=== PATIENT | male | born 1995 | race Hispanic/Latino ===

== ENCOUNTER → 2018-05-03 11:27 | Outpatient (CLI) | payer BC, SELFPAY ==
--- NOTE | 2018-05-03 11:40 | RAD_ITS ---
STUDY: X-RAY - RIGHT HAND REASON FOR EXAM: Male, 23 years old. Polyarthropathy TECHNIQUE: 2 view(s) of the hand. COMPARISON: None. FINDINGS: Normal radiocarpal articulation. Normal distal radioulnar joint. Normal visualized carpal bones. Normal carpal articulations Normal carpometacarpal articulation of the thumb. Normal second through fifth carpometacarpal joints. Normal metacarpi. Normal metacarpophalangeal joint of the thumb. Normal interphalangeal joint of the thumb. Normal proximal and distal phalanges of the thumb. Normal metacarpophalangeal joints of the second through fifth fingers. Normal proximal and distal interphalangeal joints of the second through fifth fingers. Normal phalanges of the second through fifth fingers. The soft tissue structures are unremarkable. RAD/Hand 2 Views IMPRESSION: Normal x-ray examination of the hand. Electronically Signed: Maximino Karimi, at 3:17 EDT Tel , Service support ,
--- NOTE | 2018-05-03 11:41 | RAD_ITS ---
STUDY: X-RAY - RIGHT FOOT CLINICAL: Male, 23 years old. Polyarthropathy TECHNIQUE: 2 view(s) of the foot. COMPARISON: None. FINDINGS: Normal talus, calcaneus, and tarsal bones. Normal visualized subtalar, talonavicular, calcaneocuboid, tarsal and tarsometatarsal articulations. Normal metatarsi. Normal metatarsophalangeal joint of the great toe. Normal tibial and fibular sesamoid bones. Normal interphalangeal joint of the great toe. Normal phalanges of the great toe. Normal second through fifth metatarsophalangeal joints. Normal interphalangeal joints and phalanges of the lesser toes. The soft tissue structures are unremarkable. RAD/Foot 2 Views IMPRESSION: Normal x-ray examination of the foot. Electronically Signed: Maximino Karimi, at 3:19 EDT Tel , Service support ,
--- NOTE | 2018-05-03 11:44 | RAD_ITS ---
STUDY: X-RAY - LEFT HAND REASON FOR EXAM: Male, 23 years old. Polyarthropathy TECHNIQUE: 2 view(s) of the hand. COMPARISON: None. FINDINGS: Normal radiocarpal articulation. Normal distal radioulnar joint. Normal visualized carpal bones. Normal carpal articulations Normal carpometacarpal articulation of the thumb. Normal second through fifth carpometacarpal joints. Normal metacarpi. Normal metacarpophalangeal joint of the thumb. Normal interphalangeal joint of the thumb. Normal proximal and distal phalanges of the thumb. Normal metacarpophalangeal joints of the second through fifth fingers. Normal proximal and distal interphalangeal joints of the second through fifth fingers. Normal phalanges of the second through fifth fingers. The soft tissue structures are unremarkable. RAD/Hand 2 Views IMPRESSION: Normal x-ray examination of the hand. Electronically Signed: Maximino Karimi, at 3:17 EDT Tel , Service support ,
--- NOTE | 2018-05-03 11:44 | RAD_ITS ---
STUDY: X-RAY - LEFT FOOT CLINICAL: Male, 23 years old. Polyarthropathy TECHNIQUE: 2 view(s) of the foot. COMPARISON: None. FINDINGS: Normal talus, calcaneus, and tarsal bones. Normal visualized subtalar, talonavicular, calcaneocuboid, tarsal and tarsometatarsal articulations. Normal metatarsi. Normal metatarsophalangeal joint of the great toe. Normal tibial and fibular sesamoid bones. Normal interphalangeal joint of the great toe. Normal phalanges of the great toe. Normal second through fifth metatarsophalangeal joints. Normal interphalangeal joints and phalanges of the lesser toes. The soft tissue structures are unremarkable. RAD/Foot 2 Views IMPRESSION: Normal x-ray examination of the foot. Electronically Signed: Maximino Karimi, at 3:18 EDT Tel , Service support ,
[2018-05-03 13:09] LABS: Eosinophil# 0.17 X10^3/uL
[2018-05-03 13:16] LABS: AST(SGOT) 19 U/L (15-37); Alanine Aminotransfer ALT/SGPT 48 U/L (16-61); Alkaline Phosphatase 69 U/L (45-117); Bilirubin, Direct 0.07 mg/dL (0.00-0.30); Creatinine, Serum 0.91 mg/dL (0.70-1.30); EST Glomerular Filtration Rate 111 mL/min (>60); Est Glom Filt Rate - Afr Amer 134 mL/min (>60); Globulin 5.2 g/dL (2.2-4.2); Protein, Total 8.2 g/dL (6.4-8.2); Rheumatoid Factor < 10.0 IU/mL (<15)
[2018-05-03 13:48] LABS: Hematocrit 41.6 % (40-54); Red Blood Count 5.22 M/mm3 (4.6-6.2)
[2018-05-03 13:49] LABS: Basophil% 0.2 % (0-1); Differential Indicated SCAN CRITERIA MET; Lymphocyte % 33.6 % (19-41); Mean Corp Hgb Conc 31.1 g/gl (32-36); Mean Corpuscular Hgb 24.9 pg (27.0-32.0); Mean Corpuscular Volume 79.7 fL (80-94); Mean Platelet Vol. 10.1 fl (6.2-12.0); Monocyte% 5.3 % (0-10); Neutrophil % 58.9 % (47-70); POSITIVE COUNT NO; POSITIVE DIFFERENTIAL YES; POSITIVE MORPHOLOGY NO; Platelet Count 435 K/mm3 (150-450); RBC Distribution Width SD 36.4 fl (35.1-43.9); White Blood Count 17.4 K/mm3 (4.4-11.0)
[2018-05-03 13:50] LABS: Absolute Lymphocyte Count 5.84 X10^3/ul (0.83-4.51); Absolute Neutrophil Count 10.3 X10^3/uL (2.0-7.7); Basophil# 0.04 X10^3/uL; Lymphocyte # 5.84 X10^3/ul (4.0); Monocyte# 0.93 X10^3/uL; Neutrophil # 10.24 X10^3/uL (2.7-7.7)
[2018-05-03 13:58] LABS: Erythrocyte Sedimentation Rate 70 mm/hr (0-15)
[2018-05-07 10:18] LABS: Anti-Nuclear Antibody Test Negative (.)
[2018-05-07 10:32] LABS: CCP IgG Antibodies 5 units (0-19)
== END ==
DX: M06.4 Inflammatory polyarthropathy (principal); Z79.899 Other long term (current) drug therapy
CPT/HCPCS: 36415; 73120; 73620; 80076; 82565; 85025; 85652; 86038; 86140; 86200; 86431

== ENCOUNTER → 2018-05-08 16:45 | Outpatient (CLI) | payer BC, SELFPAY ==
[2018-05-08 19:10] LABS: Erythrocyte Sedimentation Rate 56 mm/hr (0-15)
[2018-05-08 21:17] LABS: Absolute Lymphocyte Count 2.58 X10^3/ul (0.83-4.51); Absolute Neutrophil Count 10.6 X10^3/uL (2.0-7.7); Basophil# 0.03 X10^3/uL; Basophil% 0.2 % (0-1); Eosinophil# 0.08 X10^3/uL; Eosinophils% 0.6 % (0-5); Hematocrit 42.8 % (40-54); Hemoglobin 13.3 g/dl (13.0-16.5); Lymphocyte # 2.58 X10^3/ul (4.0); Mean Corp Hgb Conc 31.1 g/gl (32-36); Mean Corpuscular Volume 80.6 fL (80-94); Mean Platelet Vol. 10.9 fl (6.2-12.0); Monocyte# 0.94 X10^3/uL; Monocyte% 6.5 % (0-10); Neutrophil # 10.64 X10^3/uL (2.7-7.7); Neutrophil % 74.1 % (47-70); Platelet Count 385 K/mm3 (150-450); RBC Distribution Width CV 14.6 % (11.6-14.6); RBC Distribution Width SD 40.7 fl (35.1-43.9); Red Blood Count 5.31 M/mm3 (4.6-6.2); White Blood Count 14.4 K/mm3 (4.4-11.0)
[2018-05-08 21:18] LABS: POSITIVE COUNT NO; POSITIVE DIFFERENTIAL NO; POSITIVE MORPHOLOGY NO
== END ==
DX: R70.0 Elevated erythrocyte sedimentation rate (principal); R79.82 Elevated C-reactive protein (CRP); D72.829 Elevated white blood cell count, unspecified
CPT/HCPCS: 36415; 85025; 85652; 86140

== ENCOUNTER → 2018-06-04 15:42 | Outpatient (CLI) | payer BC, SELFPAY ==
[2018-06-04 16:50] LABS: Erythrocyte Sedimentation Rate 43 mm/hr (0-15)
== END ==
DX: R70.0 Elevated erythrocyte sedimentation rate (principal); R79.82 Elevated C-reactive protein (CRP)
CPT/HCPCS: 85652; 86140

== ENCOUNTER → 2018-06-15 08:52 | Outpatient (CLI) | payer BC, SELFPAY | DX: M25.552 Pain in left hip (principal); M06.00 Rheumatoid arthritis without rheumatoid factor, unspecified site; M06.4 Inflammatory polyarthropathy | CPT/HCPCS: 20610; 77002; Q9967 ==

== ENCOUNTER → 2018-06-26 14:37 | Outpatient (CLI) | payer BC, SELFPAY ==
[2018-06-26 17:04] LABS: Erythrocyte Sedimentation Rate 47 mm/hr (0-15)
== END ==
DX: M06.00 Rheumatoid arthritis without rheumatoid factor, unspecified site (principal); R70.0 Elevated erythrocyte sedimentation rate; R79.82 Elevated C-reactive protein (CRP)
CPT/HCPCS: 36415; 85652; 86140

== ENCOUNTER → 2018-08-02 11:50 | Outpatient (CLI) | payer BC, SELFPAY ==
[2018-08-02 12:55] LABS: Erythrocyte Sedimentation Rate 56 mm/hr (0-15)
[2018-08-02 12:58] LABS: Absolute Lymphocyte Count 2.24 X10^3/ul (0.83-4.51); Absolute Neutrophil Count 4.1 X10^3/uL (2.0-7.7); Basophil# 0.02 X10^3/uL; Basophil% 0.3 % (0-1); Eosinophil# 0.13 X10^3/uL; Eosinophils% 1.8 % (0-5); Hematocrit 42.7 % (40-54); Hemoglobin 13.6 g/dl (13.0-16.5); Lymphocyte # 2.24 X10^3/ul (4.0); Lymphocyte % 31.2 % (19-41); Mean Corp Hgb Conc 31.9 g/gl (32-36); Mean Corpuscular Hgb 25.1 pg (27.0-32.0); Mean Corpuscular Volume 78.9 fL (80-94); Mean Platelet Vol. 10.1 fl (6.2-12.0); Monocyte# 0.69 X10^3/uL; Monocyte% 9.6 % (0-10); Platelet Count 422 K/mm3 (150-450); RBC Distribution Width CV 12.8 % (11.6-14.6); RBC Distribution Width SD 36.6 fl (35.1-43.9); Red Blood Count 5.41 M/mm3 (4.6-6.2); White Blood Count 7.2 K/mm3 (4.4-11.0)
[2018-08-02 13:01] LABS: POSITIVE COUNT NO; POSITIVE DIFFERENTIAL NO; POSITIVE MORPHOLOGY NO
[2018-08-02 13:22] LABS: AST(SGOT) 9 U/L (15-37); Alanine Aminotransfer ALT/SGPT 18 U/L (16-61); Alkaline Phosphatase 53 U/L (45-117); Bilirubin, Direct 0.21 mg/dL (0.00-0.30); Creatinine, Serum 0.89 mg/dL (0.70-1.30); EST Glomerular Filtration Rate 113 mL/min (>60); Est Glom Filt Rate - Afr Amer 137 mL/min (>60); Globulin 5.4 g/dL (2.2-4.2); Protein, Total 8.4 g/dL (6.4-8.2); Rheumatoid Factor < 10.0 IU/mL (<15)
[2018-08-02 14:08] LABS: HIV - WCH Non-Reactive (Nonreactive)
[2018-08-10 13:10] LABS: HEPATITIS B SURFACE AG Negative (Negative); Hepatitis B Core AB IgM Negative (Negative); Hepatitis B Core Ab Total Negative (Negative); Hepatitis Be Ab Negative (Negative); Hepatitis Be Ag Negative (Negative); QNTFERON TB Ag Minus Nil Value 0.26 IU/mL (.); QNTFERON TB Mitogen Value > 10.00 IU/mL (.); QNTFERON TB Nil Value 0.04 IU/mL (.)
[2018-08-10 13:33] LABS: CCP IgG Antibodies 5 units (0-19); Hep C Antibodies <0.1 s/co ratio (0.0-0.9); QNTIFERON TB Gold Negative (Negative)
== END ==
DX: M06.00 Rheumatoid arthritis without rheumatoid factor, unspecified site (principal); Z79.899 Other long term (current) drug therapy
CPT/HCPCS: 36415; 80076; 82565; 85025; 85652; 86140; 86200; 86431; 86480; 86703; 86705; 86707; 86803; 87340; 87350

== ENCOUNTER → 2018-08-13 08:57 | Outpatient (CLI) | payer BC, SELFPAY ==
--- NOTE | 2018-08-13 09:03 | NM_ITS ---
CLINICAL: 23-year-old male with reported history of known rheumatoid arthritis, current complaint of diffuse arthralgia and left hip pain. WHOLE BODY 99m Tc MDP RADIONUCLIDE BONE SCINTIGRAPHY COMPARISON: None available FINDINGS: Following the intravenous administration of 25.0 mCi of 99m Tc MDP, whole body bone images reveal: 1. Increased radiopharmaceutical concentration is identified in the left hip articulation at the acetabular-femoral head interface, the glenohumeral and sternoclavicular compartments of both shoulders, bilateral mid and forefoot, right and left wrist articulations, both knees. 2. The remaining skeletal structures are scintigraphically unremarkable with normal-appearing renal images and urinary bladder activity identified. Enhanced uptake appears evident in the right mid humeral diaphysis likely representing superimposed tracer concentration in the right upper extremity lymphatic channels associated with the visualized right antecubital fossa dose infiltration. NM/Bone Scan Whole Body IMPRESSION: 1. The increase in radiopharmaceutical concentration identified in the left hip, bilateral shoulders, midfoot and forefoot bilaterally, right-left wrists, knee articulations bilaterally is most consistent with synovial inflammation attributed to the patient's known history of rheumatoid arthritis. Electronically Signed: Angel Luis Sousa DO at 23:57 EDT Tel , Service support ,
== END ==
DX: M06.00 Rheumatoid arthritis without rheumatoid factor, unspecified site (principal); R79.82 Elevated C-reactive protein (CRP); R70.0 Elevated erythrocyte sedimentation rate
CPT/HCPCS: 78306

== ENCOUNTER → 2018-08-31 13:16 | Outpatient (CLI) | payer BC, SELFPAY ==
[2018-08-31 13:38] LABS: Erythrocyte Sedimentation Rate 11 mm/hr (0-15)
[2018-08-31 13:43] LABS: Absolute Lymphocyte Count 4.35 X10^3/ul (0.83-4.51); Absolute Neutrophil Count 5.3 X10^3/uL (2.0-7.7); Basophil# 0.03 X10^3/uL; Basophil% 0.3 % (0-1); Eosinophil# 0.15 X10^3/uL; Eosinophils% 1.4 % (0-5); Hematocrit 47.4 % (40-54); Hemoglobin 14.8 g/dl (13.0-16.5); Lymphocyte # 4.35 X10^3/ul (4.0); Lymphocyte % 40.7 % (19-41); Mean Corp Hgb Conc 31.2 g/gl (32-36); Mean Corpuscular Hgb 25.4 pg (27.0-32.0); Mean Corpuscular Volume 81.4 fL (80-94); Mean Platelet Vol. 10.3 fl (6.2-12.0); Monocyte# 0.82 X10^3/uL; Monocyte% 7.7 % (0-10); Neutrophil # 5.32 X10^3/uL (2.7-7.7); Neutrophil % 49.8 % (47-70); Platelet Count 260 K/mm3 (150-450); RBC Distribution Width CV 14.7 % (11.6-14.6); RBC Distribution Width SD 42.4 fl (35.1-43.9); Red Blood Count 5.82 M/mm3 (4.6-6.2); White Blood Count 10.7 K/mm3 (4.4-11.0)
[2018-08-31 13:44] LABS: POSITIVE COUNT NO; POSITIVE DIFFERENTIAL NO; POSITIVE MORPHOLOGY NO
[2018-08-31 13:59] LABS: AST(SGOT) 11 U/L (15-37); Alanine Aminotransfer ALT/SGPT 32 U/L (16-61); Albumin, Serum 3.6 g/dL (3.2-5.0); Alkaline Phosphatase 64 U/L (45-117); Bilirubin, Direct 0.17 mg/dL (0.00-0.30); Creatinine, Serum 0.93 mg/dL (0.70-1.30); EST Glomerular Filtration Rate 107 mL/min (>60); Est Glom Filt Rate - Afr Amer 130 mL/min (>60); Globulin 4.5 g/dL (2.2-4.2); Protein, Total 8.1 g/dL (6.4-8.2)
== END ==
DX: M06.00 Rheumatoid arthritis without rheumatoid factor, unspecified site (principal); R70.0 Elevated erythrocyte sedimentation rate; Z79.899 Other long term (current) drug therapy
CPT/HCPCS: 36415; 80076; 82565; 85025; 85652; 86140

== ENCOUNTER → 2018-10-19 12:05 | Outpatient (CLI) | payer BC, SELFPAY ==
[2018-10-19 13:11] LABS: Absolute Lymphocyte Count 2.99 X10^3/ul (0.83-4.51); Absolute Neutrophil Count 5.7 X10^3/uL (2.0-7.7); Basophil# 0.03 X10^3/uL; Basophil% 0.3 % (0-1); Eosinophil# 0.16 X10^3/uL; Eosinophils% 1.6 % (0-5); Hematocrit 40.5 % (40-54); Hemoglobin 12.7 g/dl (13.0-16.5); Lymphocyte # 2.99 X10^3/ul (4.0); Lymphocyte % 30.3 % (19-41); Mean Corp Hgb Conc 31.4 g/gl (32-36); Mean Corpuscular Hgb 25.5 pg (27.0-32.0); Mean Corpuscular Volume 81.3 fL (80-94); Mean Platelet Vol. 9.7 fl (6.2-12.0); Monocyte# 0.94 X10^3/uL; Monocyte% 9.5 % (0-10); Neutrophil # 5.72 X10^3/uL (2.7-7.7); Neutrophil % 58.1 % (47-70); POSITIVE COUNT NO; POSITIVE DIFFERENTIAL NO; POSITIVE MORPHOLOGY NO; Platelet Count 345 K/mm3 (150-450); RBC Distribution Width CV 15.2 % (11.6-14.6); RBC Distribution Width SD 44.9 fl (35.1-43.9); Red Blood Count 4.98 M/mm3 (4.6-6.2); White Blood Count 9.9 K/mm3 (4.4-11.0)
[2018-10-19 13:16] LABS: Erythrocyte Sedimentation Rate 66 mm/hr (0-15)
[2018-10-19 13:38] LABS: AST(SGOT) 8 U/L (15-37); Alanine Aminotransfer ALT/SGPT 19 U/L (16-61); Alkaline Phosphatase 49 U/L (45-117); Bilirubin, Direct 0.23 mg/dL (0.00-0.30); Creatinine, Serum 0.82 mg/dL (0.70-1.30); EST Glomerular Filtration Rate 125 mL/min (>60); Est Glom Filt Rate - Afr Amer 151 mL/min (>60); Globulin 4.6 g/dL (2.2-4.2); Protein, Total 7.6 g/dL (6.4-8.2)
== END ==
DX: M06.00 Rheumatoid arthritis without rheumatoid factor, unspecified site (principal); R70.0 Elevated erythrocyte sedimentation rate; Z79.899 Other long term (current) drug therapy
CPT/HCPCS: 36415; 80076; 82565; 85025; 85652; 86140

== ENCOUNTER → 2018-11-26 16:35 | Outpatient (CLI) | payer BC, SELFPAY ==
[2018-11-26 17:33] LABS: Absolute Lymphocyte Count 1.74 X10^3/ul (0.83-4.51); Basophil# 0.04 X10^3/uL; Basophil% 0.5 % (0-1); Eosinophils% 2.3 % (0-5); Erythrocyte Sedimentation Rate 40 mm/hr (0-15); Hemoglobin 12.3 g/dl (13.0-16.5); Lymphocyte # 1.74 X10^3/ul (4.0); Lymphocyte % 19.7 % (19-41); Mean Corp Hgb Conc 31.5 g/gl (32-36); Mean Corpuscular Hgb 25.9 pg (27.0-32.0); Mean Corpuscular Volume 82.3 fL (80-94); Mean Platelet Vol. 10.4 fl (6.2-12.0); Monocyte# 0.87 X10^3/uL; Monocyte% 9.9 % (0-10); Neutrophil # 5.96 X10^3/uL (2.7-7.7); Neutrophil % 67.5 % (47-70); Platelet Count 352 K/mm3 (150-450); RBC Distribution Width CV 13.8 % (11.6-14.6); RBC Distribution Width SD 40.4 fl (35.1-43.9); Red Blood Count 4.74 M/mm3 (4.6-6.2); White Blood Count 8.8 K/mm3 (4.4-11.0)
[2018-11-26 17:42] LABS: AST(SGOT) 10 U/L (15-37); Alanine Aminotransfer ALT/SGPT 20 U/L (16-61); Albumin, Serum 3.1 g/dL (3.2-5.0); Alkaline Phosphatase 60 U/L (45-117); Bilirubin, Direct 0.32 mg/dL (0.00-0.30); Creatinine, Serum 0.81 mg/dL (0.70-1.30); EST Glomerular Filtration Rate 125 mL/min (>60); Est Glom Filt Rate - Afr Amer 151 mL/min (>60); Globulin 4.5 g/dL (2.2-4.2); Protein, Total 7.6 g/dL (6.4-8.2)
[2018-11-26 18:03] LABS: POSITIVE COUNT NO; POSITIVE DIFFERENTIAL NO; POSITIVE MORPHOLOGY NO
== END ==
DX: M06.00 Rheumatoid arthritis without rheumatoid factor, unspecified site (principal); Z79.899 Other long term (current) drug therapy
CPT/HCPCS: 36415; 80076; 82565; 85025; 85652; 86140

== ENCOUNTER → 2019-02-04 12:20 | Outpatient (CLI) | payer BC, SELFPAY ==
[2019-02-04 13:24] LABS: Absolute Lymphocyte Count 2.63 X10^3/ul (0.83-4.51); Absolute Neutrophil Count 8.4 X10^3/uL (2.0-7.7); Basophil# 0.02 X10^3/uL; Basophil% 0.2 % (0-1); Eosinophil# 0.31 X10^3/uL; Eosinophils% 2.6 % (0-5); Hematocrit 33.6 % (40-54); Hemoglobin 10.4 g/dl (13.0-16.5); Lymphocyte # 2.63 X10^3/ul (4.0); Lymphocyte % 22.2 % (19-41); Mean Corpuscular Hgb 24.5 pg (27.0-32.0); Mean Corpuscular Volume 79.1 fL (80-94); Mean Platelet Vol. 9.9 fl (6.2-12.0); Monocyte# 0.42 X10^3/uL; Monocyte% 3.6 % (0-10); Neutrophil # 8.43 X10^3/uL (2.7-7.7); Neutrophil % 71.2 % (47-70); Platelet Count 354 K/mm3 (150-450); RBC Distribution Width CV 15.6 % (11.6-14.6); RBC Distribution Width SD 45.1 fl (35.1-43.9); Red Blood Count 4.25 M/mm3 (4.6-6.2); White Blood Count 11.8 K/mm3 (4.4-11.0)
[2019-02-04 13:37] LABS: Erythrocyte Sedimentation Rate 59 mm/hr (0-15)
[2019-02-04 13:39] LABS: POSITIVE COUNT NO; POSITIVE DIFFERENTIAL NO; POSITIVE MORPHOLOGY NO
[2019-02-04 13:43] LABS: AST(SGOT) 13 U/L (15-37); Alanine Aminotransfer ALT/SGPT 23 U/L (16-61); Albumin, Serum 2.8 g/dL (3.2-5.0); Alkaline Phosphatase 75 U/L (45-117); Bilirubin, Direct 0.17 mg/dL (0.00-0.30); Creatinine, Serum 0.82 mg/dL (0.70-1.30); EST Glomerular Filtration Rate 123 mL/min (>60); Est Glom Filt Rate - Afr Amer 149 mL/min (>60); Globulin 4.6 g/dL (2.2-4.2); Protein, Total 7.4 g/dL (6.4-8.2)
== END ==
PROVIDERS: Referring Provider Internal Medicine Rheumatology; Visit Provider Internal Medicine Rheumatology
DX: M06.00 Rheumatoid arthritis without rheumatoid factor, unspecified site (principal); Z79.899 Other long term (current) drug therapy
CPT/HCPCS: 36415; 80076; 82565; 85025; 85652; 86140

== ENCOUNTER → 2019-02-25 13:00 | Outpatient (CLI) | payer BC, SELFPAY ==
--- NOTE | 2019-02-25 13:06 | RAD_ITS ---
STUDY: X-RAY CHEST REASON FOR EXAM: Male, 23 years old. Rheumatoid arthritis. TECHNIQUE: Frontal and lateral views of the chest COMPARISON: None. FINDINGS: The lungs are clear. There are no pleural effusions. There is no pneumothorax. The heart is normal in size. The visualized osseous structures are within normal limits. RAD/Chest PA and Lateral IMPRESSION: Clear lungs. Electronically Signed: Sandro Gee, at 19:32 EDT Tel , Service support ,
== END ==
PROVIDERS: Referring Provider Internal Medicine Rheumatology; Visit Provider Internal Medicine Rheumatology
DX: M06.00 Rheumatoid arthritis without rheumatoid factor, unspecified site (principal)
CPT/HCPCS: 71046

== ENCOUNTER → 2019-03-01 15:37 | Outpatient (CLI) | payer BC, SELFPAY ==
[2019-03-01 16:21] LABS: Erythrocyte Sedimentation Rate 38 mm/hr (0-15)
== END ==
PROVIDERS: Referring Provider Internal Medicine Rheumatology; Visit Provider Internal Medicine Rheumatology
DX: R70.0 Elevated erythrocyte sedimentation rate (principal); R79.82 Elevated C-reactive protein (CRP)
CPT/HCPCS: 36415; 85652; 86140

== ENCOUNTER → 2019-04-08 12:35 | Outpatient (CLI) | payer BC, SELFPAY ==
[2019-04-08 13:31] LABS: Absolute Lymphocyte Count 3.54 X10^3/ul (0.83-4.51); Basophil# 0.01 X10^3/uL; Basophil% 0.1 % (0-1); Eosinophil# 0.07 X10^3/uL; Eosinophils% 0.7 % (0-5); Hematocrit 40.6 % (40-54); Hemoglobin 13.4 g/dl (13.0-16.5); Lymphocyte # 3.54 X10^3/ul (4.0); Lymphocyte % 33.9 % (19-41); Mean Corpuscular Hgb 27.4 pg (27.0-32.0); Mean Platelet Vol. 11.3 fl (6.2-12.0); Monocyte# 0.74 X10^3/uL; Monocyte% 7.1 % (0-10); Neutrophil # 6.04 X10^3/uL (2.7-7.7); Neutrophil % 57.9 % (47-70); Platelet Count 242 K/mm3 (150-450); RBC Distribution Width CV 17.5 % (11.6-14.6); RBC Distribution Width SD 53.2 fl (35.1-43.9); Red Blood Count 4.89 M/mm3 (4.6-6.2); White Blood Count 10.4 K/mm3 (4.4-11.0)
[2019-04-08 13:32] LABS: POSITIVE COUNT NO; POSITIVE DIFFERENTIAL NO; POSITIVE MORPHOLOGY NO
[2019-04-08 13:56] LABS: AST(SGOT) 6 U/L (15-37); Alanine Aminotransfer ALT/SGPT 17 U/L (16-61); Albumin, Serum 3.6 g/dL (3.2-5.0); Alkaline Phosphatase 80 U/L (45-117); Bilirubin, Direct 0.24 mg/dL (0.00-0.30); Creatinine, Serum 0.98 mg/dL (0.70-1.30); EST Glomerular Filtration Rate 101 mL/min (>60); Est Glom Filt Rate - Afr Amer 123 mL/min (>60); Globulin 3.5 g/dL (2.2-4.2); Protein, Total 7.1 g/dL (6.4-8.2)
== END ==
PROVIDERS: Referring Provider Internal Medicine Rheumatology; Visit Provider Internal Medicine Rheumatology
DX: Z79.899 Other long term (current) drug therapy (principal)
CPT/HCPCS: 36415; 80076; 82565; 85025

== ENCOUNTER → 2019-05-06 13:13 | Outpatient (CLI) | payer BC, SELFPAY ==
[2019-05-06 14:55] LABS: Erythrocyte Sedimentation Rate 38 mm/hr (0-15)
== END ==
PROVIDERS: Referring Provider Internal Medicine Rheumatology; Visit Provider Internal Medicine Rheumatology
DX: R70.0 Elevated erythrocyte sedimentation rate (principal); R79.82 Elevated C-reactive protein (CRP); M06.00 Rheumatoid arthritis without rheumatoid factor, unspecified site
CPT/HCPCS: 36415; 85652; 86140

== ENCOUNTER 2019-06-03 11:50 | Outpatient (RCR) | payer BC, SELFPAY ==
[2019-06-03 13:39] LABS: Erythrocyte Sedimentation Rate 75 mm/hr (0-15)
== END 2019-06-03 13:00 | disposition home or self-care (01) ==
LOC: LAB 11:50
PROVIDERS: Referring Provider Internal Medicine Rheumatology; Visit Provider Internal Medicine Rheumatology
DX: R70.0 Elevated erythrocyte sedimentation rate (principal); R79.82 Elevated C-reactive protein (CRP); M06.00 Rheumatoid arthritis without rheumatoid factor, unspecified site
CPT/HCPCS: 36415; 85652; 86140

== ENCOUNTER → 2019-06-21 08:46 | Outpatient (CLI) | payer BC, SELFPAY ==
--- NOTE | 2019-06-21 08:49 | NM_ITS ---
CLINICAL: 24-year-old male with reported history of rheumatoid arthritis with current complaint of increasing left hip pain. WHOLE BODY 99m Tc MDP RADIONUCLIDE BONE SCINTIGRAPHY COMPARISON: Previous whole body bone scintigraphy study dated 08/13/2018 FINDINGS: Following the intravenous administration of 26.0 mCi of 99m Tc MDP, whole body bone images reveal: 1. Increased radiopharmaceutical concentration is currently identified in the acromioclavicular, sternoclavicular and glenohumeral compartments of both shoulders, bilateral knee articulations, right-left midfoot, wrist and elbow articulations bilaterally the right hip and intensely defined in the left hip. 2. The remaining skeletal structures are scintigraphically unremarkable with normal-appearing renal images and urinary bladder activity identified. NM/Bone Scan Whole Body IMPRESSION: 1. The increase in radiopharmaceutical concentration both redefined and newly apparent in the above described joints is commensurate with synovial inflammation intruded to the patient's rheumatoid arthritis. 2. Overall compared to the previous whole body bone scintigraphy study dated 08/13/2018, there is both redemonstrated and newly apparent foci of increased tracer uptake with the degree of facilitated tracer concentration significantly increased in the left hip relative to the previous examination. Electronically Signed: Angel Luis Sousa DO at 7:53 EDT Tel , Service support ,
== END ==
PROVIDERS: Referring Provider Internal Medicine Rheumatology; Visit Provider Internal Medicine Rheumatology
DX: M06.00 Rheumatoid arthritis without rheumatoid factor, unspecified site (principal)
CPT/HCPCS: 78306

== ENCOUNTER → 2019-07-08 08:49 | Outpatient (CLI) | payer BC, SELFPAY ==
--- NOTE | 2019-07-08 08:51 | RAD_ITS ---
PROCEDURE: Fluoroscopic guided Hip Injection DATE: July 08, 2019. INDICATION: Male, 24 years old. History of rheumatoid arthritis. Left hip pain. PHYSICIAN: Rafy Lockett M.D. MEDICATIONS: 40 mg of Kenalog. 2% lidocaine administered subcutaneously for local anesthesia. ACCESS SITE: Left hip. NEEDLE: 22-gauge spinal needle. FLUOROSCOPY TIME (if supplied): (0:30) minutes/seconds FINDINGS: The risks, benefits, and alternatives to the procedure were explained to the patient. The specific risks of bleeding, infection, and neurovascular injury were detailed and accepted. Witnessed informed consent was obtained. A 22-gauge spinal needle was positioned under radiographic fluoroscopic localization. Approximately 2 cc of Isovue-300 instilled for localization purposes. Medication was then injected. The patient tolerated the procedure well without any immediate complications. RAD/Inj/Asp Benjamin Jt Should/Hip/Knee IMPRESSION: 1. Successful fluoroscopic guided hip injection. Electronically Signed: Rafy Lockett, at 10:22 EDT , Service support ,
== END ==
PROVIDERS: Referring Provider Internal Medicine Rheumatology; Visit Provider Internal Medicine Rheumatology
DX: M25.552 Pain in left hip (principal); M06.00 Rheumatoid arthritis without rheumatoid factor, unspecified site; M06.4 Inflammatory polyarthropathy
CPT/HCPCS: 20610; 77002; Q9965

== ENCOUNTER → 2019-07-10 15:09 | Outpatient (CLI) | payer BC, SELFPAY ==
[2019-07-10 16:21] LABS: Absolute Lymphocyte Count 2.71 X10^3/uL (0.83-4.51); Absolute Neutrophil Count 7.4 X10^3/uL (2.0-7.7); Basophil# 0.03 X10^3/uL; Basophil% 0.3 % (0-1); Eosinophil# 0.03 X10^3/uL; Eosinophils% 0.3 % (0-5); Hematocrit 36.6 % (40-54); Hemoglobin 11.2 g/dL (13.0-16.5); Lymphocyte # 2.71 X10^3/ul (4.0); Lymphocyte % 25.1 % (19-41); Mean Corp Hgb Conc 30.6 g/dL (32-36); Mean Corpuscular Volume 85.1 fL (80-94); Mean Platelet Vol. 9.9 fl (6.2-12.0); Monocyte# 0.59 X10^3/uL; Monocyte% 5.5 % (0-10); NRBC Flagged by Analyzer 0 % (0-5); Neutrophil # 7.37 X10^3/uL (2.7-7.7); Neutrophil % 68.2 % (47-70); Platelet Count 437 K/mm3 (150-450); RBC Distribution Width CV 13.3 % (11.6-14.6); RBC Distribution Width SD 40.3 fl (35.1-43.9); White Blood Count 10.8 K/mm3 (4.4-11.0)
[2019-07-10 16:45] LABS: Erythrocyte Sedimentation Rate 80 mm/hr (0-15)
[2019-07-10 17:10] LABS: AST(SGOT) 10 U/L (15-37); Alanine Aminotransfer ALT/SGPT 22 U/L (16-61); Albumin, Serum 2.8 g/dL (3.2-5.0); Alkaline Phosphatase 74 U/L (45-117); Bilirubin, Direct 0.09 mg/dL (0.00-0.30); Creatinine, Serum 0.85 mg/dL (0.70-1.30); EST Glomerular Filtration Rate 118 mL/min (>60); Est Glom Filt Rate - Afr Amer 143 mL/min (>60); Globulin 4.9 g/dL (2.2-4.2); Protein, Total 7.7 g/dL (6.4-8.2); Rheumatoid Factor < 10.0 IU/mL (<15)
[2019-07-11 12:57] LABS: Hepatitis B Surface Antibody Non-Reactive; Hepatitis B Surface Antigen Non-Reactive (Nonreactive); Hepatitis C Antibody Non-Reactive (Nonreactive)
[2019-07-13 03:06] LABS: QNTFERON TB Mitogen Value > 10.00 IU/mL (.); QNTFERON TB Nil Value 0.03 IU/mL (.); QNTFERON TB1+ Ag Value 0.03 IU/mL (.); QNTFERON TB2+ Ag Value 0.02 IU/mL (.)
[2019-07-15 10:14] LABS: CCP IgG Antibodies 4 units (0-19); Hepatitis B Core Ab Total Negative (Negative); QNTIFERON TB Positive Criteria Negative (Negative)
== END ==
PROVIDERS: Family Provider Internal Medicine Rheumatology; PCP Internal Medicine Rheumatology; Referring Provider Internal Medicine Rheumatology; Visit Provider Internal Medicine Rheumatology
DX: M06.00 Rheumatoid arthritis without rheumatoid factor, unspecified site (principal); Z79.899 Other long term (current) drug therapy
CPT/HCPCS: 36415; 80076; 82565; 85025; 85652; 86140; 86200; 86431; 86480; 86704; 86706; 86803; 87340

== ENCOUNTER → 2019-07-29 15:00 | Outpatient (CLI) | payer BC, SELFPAY ==
--- NOTE | 2019-07-29 15:05 | MRI_ITS ---
STUDY: MRI LEFT HIP REASON FOR EXAM: Male, 24 years old. Rheumatoid arthritis. Left hip pain. TECHNIQUE: Standardized fat and water weighted pulse sequences were obtained in all 3 orthogonal planes. COMPARISON: None. FINDINGS: There is severe loss of the articular joint space of the hip joint, with full thickness loss of the hyaline cartilage. There is small joint effusion. There is marrow edema and cortical erosions or cysts of the weight bearing articular surface of the acetabulum and the femoral head. There is deformity with flattening of the femoral head. Normal femoral neck and intratrochanteric region. Normal gluteus minimus, medius and iliopsoas tendons and distal insertions. There is no trochanteric, iliopsoas or iliopectineal bursitis. Normal superior and inferior pubic rami. Normal pubic symphysis. Normal ischial tuberosity. Normal origin of the hamstring tendons. Normal visualized iliac wing, sacroiliac joint, and sacral ala. Normal visualized soft tissue structures of the pelvis. There are enlarged pelvic lymph nodes measuring up to 2.7 cm in the external iliac region. MRI/Lower Ext Joint Only (Routine) IMPRESSION: Edema and erosions of the acetabulum and femoral head consistent with inflammatory arthropathy. Flattening and deformity of the femoral head suspicious for avascular necrosis. Severe joint space narrowing. Electronically Signed: Brayden Mondragon MD at 17:01 EDT , Service support ,
== END ==
PROVIDERS: Referring Provider Internal Medicine Rheumatology; Visit Provider Internal Medicine Rheumatology
DX: M24.152 Other articular cartilage disorders, left hip (principal)
CPT/HCPCS: 73721

== ENCOUNTER 2019-08-23 12:43 | Outpatient (RCR) | payer BC, SELFPAY ==
[2019-08-23 13:53] LABS: Absolute Lymphocyte Count 2.72 X10^3/uL (0.83-4.51); Absolute Neutrophil Count 5.3 X10^3/uL (2.0-7.7); Basophil# 0.05 X10^3/uL; Basophil% 0.6 % (0-1); Eosinophil# 0.13 X10^3/uL; Eosinophils% 1.4 % (0-5); Hematocrit 36.9 % (40-54); Hemoglobin 11.2 g/dL (13.0-16.5); Lymphocyte # 2.72 X10^3/ul (4.0); Lymphocyte % 30.2 % (19-41); Mean Corp Hgb Conc 30.4 g/dL (32-36); Mean Corpuscular Hgb 24.7 pg (27.0-32.0); Mean Corpuscular Volume 81.3 fL (80-94); Mean Platelet Vol. 10.3 fl (6.2-12.0); Monocyte# 0.75 X10^3/uL; Monocyte% 8.3 % (0-10); NRBC Flagged by Analyzer 0 % (0-5); Neutrophil # 5.34 X10^3/uL (2.7-7.7); Neutrophil % 59.2 % (47-70); Platelet Count 479 K/mm3 (150-450); RBC Distribution Width CV 15.7 % (11.6-14.6); RBC Distribution Width SD 45.3 fl (35.1-43.9); Red Blood Count 4.54 M/mm3 (4.6-6.2)
[2019-08-23 14:04] LABS: Erythrocyte Sedimentation Rate 103 mm/hr (0-15)
[2019-08-23 14:13] LABS: AST(SGOT) 11 U/L (15-37); Alanine Aminotransfer ALT/SGPT 18 U/L (16-61); Albumin, Serum 3.1 g/dL (3.2-5.0); Alkaline Phosphatase 77 U/L (45-117); Bilirubin, Direct 0.23 mg/dL (0.00-0.30); Creatinine, Serum 0.84 mg/dL (0.70-1.30); EST Glomerular Filtration Rate 120 mL/min (>60); Est Glom Filt Rate - Afr Amer 145 mL/min (>60); Globulin 5.7 g/dL (2.2-4.2); Protein, Total 8.8 g/dL (6.4-8.2)
== END 2019-08-23 18:00 | disposition home or self-care (01) ==
LOC: LAB 12:43
PROVIDERS: Referring Provider Internal Medicine Rheumatology; Visit Provider Internal Medicine Rheumatology
DX: M06.00 Rheumatoid arthritis without rheumatoid factor, unspecified site (principal); Z79.899 Other long term (current) drug therapy
CPT/HCPCS: 36415; 80076; 82565; 85025; 85652; 86140

== ENCOUNTER 2019-09-30 13:13 | Outpatient (RCR) | payer BC, SELFPAY ==
[2019-09-30 13:55] LABS: Erythrocyte Sedimentation Rate 52 mm/hr (0-15)
[2019-09-30 13:57] LABS: Absolute Lymphocyte Count 2.74 X10^3/uL (0.83-4.51); Absolute Neutrophil Count 5.4 X10^3/uL (2.0-7.7); Basophil# 0.03 X10^3/uL; Basophil% 0.3 % (0-1); Eosinophils% 1.1 % (0-5); Hematocrit 38.4 % (40-54); Hemoglobin 11.6 g/dL (13.0-16.5); Lymphocyte # 2.74 X10^3/ul (4.0); Lymphocyte % 31.5 % (19-41); Mean Corp Hgb Conc 30.2 g/dL (32-36); Mean Corpuscular Hgb 23.7 pg (27.0-32.0); Mean Corpuscular Volume 78.5 fL (80-94); Mean Platelet Vol. 9.9 fl (6.2-12.0); Monocyte# 0.44 X10^3/uL; Monocyte% 5.1 % (0-10); NRBC Flagged by Analyzer 0 % (0-5); Neutrophil # 5.36 X10^3/uL (2.7-7.7); Neutrophil % 61.7 % (47-70); Platelet Count 519 K/mm3 (150-450); RBC Distribution Width CV 15.6 % (11.6-14.6); RBC Distribution Width SD 44.3 fl (35.1-43.9); Red Blood Count 4.89 M/mm3 (4.6-6.2); White Blood Count 8.7 K/mm3 (4.4-11.0)
[2019-09-30 14:23] LABS: AST(SGOT) 12 U/L (15-37); Alanine Aminotransfer ALT/SGPT 20 U/L (16-61); Albumin, Serum 3.1 g/dL (3.2-5.0); Alkaline Phosphatase 78 U/L (45-117); Bilirubin, Direct 0.21 mg/dL (0.00-0.30); Creatinine, Serum 0.84 mg/dL (0.70-1.30); EST Glomerular Filtration Rate 120 mL/min (>60); Est Glom Filt Rate - Afr Amer 145 mL/min (>60); Globulin 5.8 g/dL (2.2-4.2); Protein, Total 8.9 g/dL (6.4-8.2)
== END 2019-09-30 18:00 | disposition home or self-care (01) ==
LOC: LAB 13:13
PROVIDERS: Referring Provider Internal Medicine Rheumatology; Visit Provider Internal Medicine Rheumatology
DX: M06.00 Rheumatoid arthritis without rheumatoid factor, unspecified site (principal); Z79.899 Other long term (current) drug therapy
CPT/HCPCS: 36415; 80076; 82565; 85025; 85652; 86140

== ENCOUNTER → 2019-10-14 09:58 | Outpatient (CLI) | payer BC, SELFPAY ==
[2019-10-14 11:22] LABS: Erythrocyte Sedimentation Rate 96 mm/hr (0-15)
[2019-10-15 15:42] LABS: Angiotensin Convert Enzyme < 15 U/L (14-82)
[2019-10-15 20:07] LABS: RNP Ab <0.2 AI (0.0-0.9); Smith Ab <0.2 AI (0.0-0.9)
[2019-10-15 21:28] LABS: Anti-Nuclear Antibody Test Negative (.); Anti-dsDNA Ab 2 IU/mL (0-9)
== END ==
PROVIDERS: Referring Provider Internal Medicine Rheumatology; Visit Provider Internal Medicine Rheumatology
DX: M06.4 Inflammatory polyarthropathy (principal); R79.82 Elevated C-reactive protein (CRP)
CPT/HCPCS: 36415; 82164; 85652; 86038; 86140; 86225; 86235

== ENCOUNTER → 2019-11-11 12:17 | Outpatient (CLI) | payer BC, SELFPAY ==
--- NOTE | 2019-11-11 12:37 | RAD_ITS ---
STUDY: X-RAY - PELVIS AND RIGHT HIP REASON FOR EXAM: Male, 24 years old. diagnosed rheumatoid arthritis in left hip; pain in right hip for approx 2 months TECHNIQUE: 3 views of the pelvis and hip. COMPARISON: None. FINDINGS: There is a non-specific bowel gas pattern. Normal visualized soft tissue structures. Borderline narrowing of the bilateral iliac wings, sacroiliac joints and visualized sacrum. Normal bilateral superior and inferior pubic rami. Normal pubic symphysis. Normal bilateral ischial tuberosities. Normal visualized femoral head. Normal acetabulum. There is moderate articular joint space narrowing of the hip. RAD/HIP, UNI W/ Pelvis 2-3 Views IMPRESSION: Moderate narrowing of the right hip joint. No acute fracture or subluxation. Electronically Signed: Torie Rico MD at 0:42 EST , Service support ,
== END ==
PROVIDERS: Referring Provider Internal Medicine Rheumatology; Visit Provider Internal Medicine Rheumatology
DX: M16.11 Unilateral primary osteoarthritis, right hip (principal)
CPT/HCPCS: 73502

== ENCOUNTER 2019-11-11 12:47 | Outpatient (RCR) | payer BC, SELFPAY ==
[2019-11-11 13:25] LABS: Erythrocyte Sedimentation Rate 47 mm/hr (0-15)
[2019-11-11 13:27] LABS: Absolute Lymphocyte Count 3.61 X10^3/uL (0.83-4.51); Absolute Neutrophil Count 7.7 X10^3/uL (2.0-7.7); Basophil# 0.06 X10^3/uL; Basophil% 0.5 % (0-1); Eosinophil# 0.19 X10^3/uL; Eosinophils% 1.5 % (0-5); Hematocrit 44.9 % (40-54); Hemoglobin 13.6 g/dL (13.0-16.5); Lymphocyte # 3.61 X10^3/ul (4.0); Lymphocyte % 28.7 % (19-41); Mean Corp Hgb Conc 30.3 g/dL (32-36); Mean Corpuscular Hgb 23.9 pg (27.0-32.0); Mean Corpuscular Volume 78.9 fL (80-94); Mean Platelet Vol. 10.4 fl (6.2-12.0); Monocyte# 0.96 X10^3/uL; Monocyte% 7.6 % (0-10); NRBC Flagged by Analyzer 0 % (0-5); Neutrophil # 7.68 X10^3/uL (2.7-7.7); Neutrophil % 61.1 % (47-70); Platelet Count 353 K/mm3 (150-450); RBC Distribution Width CV 18.9 % (11.6-14.6); RBC Distribution Width SD 51.6 fl (35.1-43.9); Red Blood Count 5.69 M/mm3 (4.6-6.2); White Blood Count 12.6 K/mm3 (4.4-11.0)
[2019-11-11 13:56] LABS: AST(SGOT) 12 U/L (15-37); Alanine Aminotransfer ALT/SGPT 31 U/L (16-61); Albumin, Serum 3.4 g/dL (3.2-5.0); Alkaline Phosphatase 79 U/L (45-117); Creatinine, Serum 0.82 mg/dL (0.70-1.30); EST Glomerular Filtration Rate 124 mL/min (>60); Est Glom Filt Rate - Afr Amer 150 mL/min (>60); Protein, Total 8.4 g/dL (6.4-8.2)
== END 2019-11-11 18:00 | disposition home or self-care (01) ==
LOC: LAB 12:47
PROVIDERS: Referring Provider Internal Medicine Rheumatology; Visit Provider Internal Medicine Rheumatology
DX: M06.00 Rheumatoid arthritis without rheumatoid factor, unspecified site (principal); Z79.899 Other long term (current) drug therapy
CPT/HCPCS: 36415; 80076; 82565; 85025; 85652; 86140

== ENCOUNTER → 2019-12-02 14:07 | Outpatient (CLI) | payer BC, SELFPAY ==
[2019-12-02 16:15] LABS: Erythrocyte Sedimentation Rate 56 mm/hr (0-15)
== END ==
PROVIDERS: Referring Provider Internal Medicine Rheumatology; Visit Provider Internal Medicine Rheumatology
DX: R70.0 Elevated erythrocyte sedimentation rate (principal)
CPT/HCPCS: 36415; 85652; 86140

== ENCOUNTER → 2019-12-24 14:55 | Outpatient (CLI) | payer BC, SELFPAY ==
[2019-12-24 15:27] LABS: Erythrocyte Sedimentation Rate 38 mm/hr (0-15)
== END ==
PROVIDERS: Referring Provider Internal Medicine Rheumatology; Visit Provider Internal Medicine Rheumatology
DX: R70.0 Elevated erythrocyte sedimentation rate (principal)
CPT/HCPCS: 36415; 85652; 86140

== ENCOUNTER → 2020-04-10 11:48 | Outpatient (CLI) | payer BC, MEDICAID, SELFPAY ==
[2020-04-10 12:27] LABS: Absolute Lymphocyte Count 2.97 X10^3/uL (0.83-4.51); Absolute Neutrophil Count 5.2 X10^3/uL (2.0-7.7); Basophil# 0.03 X10^3/uL; Basophil% 0.3 % (0-1); Eosinophil# 0.19 X10^3/uL; Eosinophils% 2.1 % (0-5); Hematocrit 44.6 % (40-54); Hemoglobin 13.5 g/dL (13.0-16.5); Lymphocyte # 2.97 X10^3/ul (4.0); Lymphocyte % 32.1 % (19-41); Mean Corp Hgb Conc 30.3 g/dL (32-36); Mean Corpuscular Hgb 24.8 pg (27.0-32.0); Mean Corpuscular Volume 81.8 fL (80-94); Mean Platelet Vol. 10.3 fl (6.2-12.0); Monocyte# 0.84 X10^3/uL; Monocyte% 9.1 % (0-10); NRBC Flagged by Analyzer 0 % (0-5); Neutrophil # 5.19 X10^3/uL (2.7-7.7); Platelet Count 416 K/mm3 (150-450); RBC Distribution Width CV 14.7 % (11.6-14.6); RBC Distribution Width SD 43.4 fl (35.1-43.9); Red Blood Count 5.45 M/mm3 (4.6-6.2); White Blood Count 9.3 K/mm3 (4.4-11.0)
[2020-04-10 12:37] LABS: International Normalized Ratio 1.2; Prothrombin Time (Protime)PT. 14.2 SECONDS (11.7-14.9)
[2020-04-10 13:02] LABS: Anion Gap 4 (5-15); BUN 13 mg/dL (7-18); BUN/Creat Ratio 17.2 RATIO (10-20); Calcium,Total 9.6 mg/dL (8.5-10.1); Chloride 104 mmol/L (98-107); Creatinine, Serum 0.76 mg/dL (0.70-1.30); EST Glomerular Filtration Rate 134 mL/min (>60); Est Glom Filt Rate - Afr Amer 162 mL/min (>60); Glucose 100 mg/dL (74-106); Potassium 3.8 mmol/L (3.5-5.1); Sodium Level 138 mmol/L (136-145)
== END ==
PROVIDERS: Referring Provider Physician Assistant Surgical; Visit Provider Physician Assistant Surgical
DX: Z01.818 Encounter for other preprocedural examination (principal)
CPT/HCPCS: 36415; 80048; 85025; 85610

== ENCOUNTER → 2020-06-24 17:56 | Outpatient (CLI) | payer MEDICAID, SELFPAY ==
--- NOTE | 2020-06-24 18:01 | CT_ITS ---
Exam: CT of the right ankle without contrast. HISTORY: Pain. History of rheumatoid arthritis. Individualized dose optimization techniques were used for this CT. COMPARISON: None. FINDINGS: There are no fractures. There are no dislocations. There are no degenerative changes. There is no evidence for active erosive arthropathy. However there is a relatively extreme degree of osteoporosis for patient of this age. Grossly normal soft tissues. CT/Extremity Lower without Contra IMPRESSION: No acute abnormalities. No evidence for active erosive arthropathy, no active erosions are seen. Severe osteoporosis. Electronically Signed: Kye Howard MD at 22:41 EDT , Service support ,
== END ==
PROVIDERS: Referring Provider Family Medicine; Visit Provider Podiatrist Foot & Ankle Surgery
DX: Q66.89 Other specified congenital deformities of feet (principal)
CPT/HCPCS: 73700

== ENCOUNTER → 2020-07-21 | Outpatient (CLI) | payer MEDICAID, SELFPAY | END | disposition home or self-care (01) | LOC: LABSPEC 16:26 | PROVIDERS: Referring Provider Physician Assistant; Visit Provider Physician Assistant | DX: L02.92 Furuncle, unspecified (principal); L70.0 Acne vulgaris; L85.8 Other specified epidermal thickening; B36.8 Other specified superficial mycoses | CPT/HCPCS: 87070; 87205 ==